=== PATIENT | male | born 1935 | race Caucasian/White ===

== ENCOUNTER 2021-06-16 18:04 | Emergency (ER) | payer OTHER ==
[2021-06-16] MEDS ORDERED: Ondansetron PF 4 MG/2 ML Vial ONE (18:34)
[2021-06-16] MEDS ORDERED: Sodium Chloride 0.9% 500 ML ONE (18:34)
[2021-06-16 18:49] LABS: Bilirubin Negative (Negative); Blood, Urine Trace (Negative); Clarity Clear (Clear); Glucose, Urine (Dipstick) >=1000 mg/dL (Negative); Ketone, Urine Negative (Negative); Leukocyte Negative (Negative); Nitrite Negative (Negative); Protein, Urine (Dipstick) Negative (Neg-Trace); Specific Gravity, Urine 1.015 (1.005-1.030); Urobilinogen 0.2 mg/dL (Less than 2); pH, Urine 5.5 (5.0-9.0)
[2021-06-16 18:52] LABS: #Basophils 0.1 thou/uL (0.0-0.2); #Eosinphils 0.5 thou/uL (0.0-0.7); #Lymphocytes 2.1 thou/uL (1.20-3.40); #Monocytes 0.7 thou/uL (0.11-0.59); #Neutrophils 3.8 thou/uL (1.40-6.50); %Basophils 1.7 % (0.0-1.0); %Eosinophils 6.3 % (0.0-10.0); %Lymphocytes 29.3 % (21.0-51.0); %Neutrophils 52.8 % (42.0-75.0); Hemoglobin 12.1 g/dL (14.0-18.0); Mean Corpuscular HGB CONC 32.4 g/dL (32.0-36.0); Mean Corpuscular Hemoglobin 32.3 pg (27.0-31.0); Mean Corpuscular Volume 99.7 fL (78.0-98.0); Mean Platelet Volume 6.6 fL (7.4-10.4); Platelet Count 154 thou/uL (130-400); RBC Distribution Width 11.7 % (11.5-14.5); Red Blood Cell (RBC) Count 3.75 mill/uL (4.70-6.10); White Blood Cell (WBC) Count 7.3 thou/uL (4.8-10.8)
[2021-06-16 18:55] LABS: Bacteria/HPF Rare-Few HPF (None Seen); RBC/HPF 0-3 HPF (0-3); Squamous Epithelial 0-3 HPF (0-3); WBC/HPF 0-3 HPF (0-3)
[2021-06-16 18:58] LABS: INR-International Normal Ratio 1.1
[2021-06-16 18:59] LABS: PTT 34.8 sec (22.9-36.1)
[2021-06-16 19:06] LABS: ALT (SGPT) 33 U/L (8-55); AST (SGOT) 27 U/L (5-34); Albumin 3.7 g/dL (3.4-4.8); Alkaline Phosphatase 62 U/L (40-110); Anion Gap 14 mmol/L (10-20); BUN (Urea Nitrogen) 19 mg/dL (8.4-25.7); Bilirubin, Total 0.4 mg/dL (0.2-1.2); Calc. Creatinine Clearance 0 mL/min (70-130); Calcium 8.4 mg/dL (7.8-10.44); Carbon Dioxide 22 mmol/L (23-31); Chloride 107 mmol/L (98-107); Globulin 2.8 g/dL (2.4-3.5); Glucose 99 mg/dL (83-110); Potassium 4.1 mmol/L (3.5-5.1); Protein, Total 6.5 g/dL (5.8-8.1); Sodium 139 mmol/L (136-145)
[2021-06-16] MEDS ORDERED: Lorazepam 2 MG/ML VIAL ONE (19:07)
== END 2021-06-16 21:23 | disposition home or self-care (01) ==
LOC: MADERS 18:04
DX: M51.36 Other intervertebral disc degeneration, lumbar region (principal); M50.30 Other cervical disc degeneration, unspecified cervical region; E11.9 Type 2 diabetes mellitus without complications; E78.5 Hyperlipidemia, unspecified; E03.9 Hypothyroidism, unspecified; K21.9 Gastro-esophageal reflux disease without esophagitis; Z87.891 Personal history of nicotine dependence; V43.62XA Car passenger injured in collision with other type car in traffic accident, initial encounter
CPT/HCPCS: 70450; 71250; 72125; 74177; 80053; 81003; 81015; 85025; 85610; 85730; 93005; 94760; 96374; 96375; J2060; J2405; J7030

== ENCOUNTER 2022-08-04 19:29 | Emergency (ER) | payer OTHER ==
[2022-08-04] MEDS ORDERED: Lidocaine 1% PF 5 ML VIAL ONE (19:46)
[2022-08-04] MEDS ORDERED: Lidocaine 1% (PF) 30 ML VIAL ONE (19:48)
[2022-08-04] MEDS ORDERED: Bacitracin 1 PK ONE (20:05)
== END 2022-08-04 20:15 | disposition home or self-care (01) ==
LOC: MADERS 19:29
DX: S01.81XA Laceration without foreign body of other part of head, initial encounter (principal); E11.9 Type 2 diabetes mellitus without complications; E78.5 Hyperlipidemia, unspecified; E03.9 Hypothyroidism, unspecified; K21.9 Gastro-esophageal reflux disease without esophagitis; Z87.891 Personal history of nicotine dependence; Z79.899 Other long term (current) drug therapy; Z79.82 Long term (current) use of aspirin; Z79.84 Long term (current) use of oral hypoglycemic drugs; W01.198A Fall on same level from slipping, tripping and stumbling with subsequent striking against other object, initial encounter
CPT/HCPCS: 12013; J2001

== ENCOUNTER 2022-09-17 14:16 | Emergency (ER) | payer OTHER ==
[2022-09-17 14:46] LABS: #Basophils 0.1 thou/uL (0.0-0.2); #Eosinphils 0.4 thou/uL (0.0-0.7); #Lymphocytes 1.5 thou/uL (1.20-3.40); #Monocytes 0.5 thou/uL (0.11-0.59); #Neutrophils 3.8 thou/uL (1.40-6.50); %Basophils 1.5 % (0.0-1.0); %Eosinophils 5.8 % (0.0-10.0); %Lymphocytes 23.7 % (21.0-51.0); %Monocytes 7.5 % (0.0-10.0); %Neutrophils 61.6 % (42.0-75.0); Hemoglobin 11.9 g/dL (14.0-18.0); Mean Platelet Volume 7.2 fL (7.4-10.4); Platelet Count 148 10x3/uL (130-400); RBC Distribution Width 11.7 % (11.5-14.5); Red Blood Cell (RBC) Count 3.73 mill/uL (4.70-6.10); White Blood Cell (WBC) Count 6.2 10x3/uL (4.8-10.8)
[2022-09-17 14:52] LABS: INR-International Normal Ratio 1.1; Prothrombin Time 14.8 sec (12.0-14.7)
[2022-09-17 14:53] LABS: PTT 33.8 sec (22.9-36.1)
[2022-09-17] MEDS ORDERED: Famotidine/PF 20 mg/2ml Vial ONE (15:00)
[2022-09-17 15:04] LABS: ALT (SGPT) 30 U/L (8-55); AST (SGOT) 25 U/L (5-34); Albumin 4.2 g/dL (3.4-4.8); Alkaline Phosphatase 76 U/L (40-110); Anion Gap 14 mmol/L (10-20); BUN (Urea Nitrogen) 22 mg/dL (8.4-25.7); Bilirubin, Total 0.4 mg/dL (0.2-1.2); Calc. Creatinine Clearance 0 mL/min (70-130); Carbon Dioxide 24 mmol/L (23-31); Chloride 106 mmol/L (98-107); Estimated GFR 52; Globulin 2.7 g/dL (2.4-3.5); Glucose 119 mg/dL (83-110); Lipase 37 U/L (8-78); Potassium 4.7 mmol/L (3.5-5.1); Protein, Total 6.9 g/dL (5.8-8.1); Sodium 139 mmol/L (136-145)
[2022-09-17 15:16] LABS: Magnesium 2.2 mg/dL (1.6-2.6)
== END 2022-09-17 17:00 | disposition short-term general hospital (02) ==
LOC: MADERS 14:16
DX: I20.0 Unstable angina (principal); E78.5 Hyperlipidemia, unspecified; E03.9 Hypothyroidism, unspecified; K21.9 Gastro-esophageal reflux disease without esophagitis; E11.319 Type 2 diabetes mellitus with unspecified diabetic retinopathy without macular edema; Z87.891 Personal history of nicotine dependence; Z79.899 Other long term (current) drug therapy; Z79.82 Long term (current) use of aspirin
CPT/HCPCS: 71045; 80053; 83690; 83735; 83880; 84443; 84484; 85025; 85610; 85730; 93005; 94760; 96374; S0028

== ENCOUNTER 2023-06-20 11:54 | Emergency (ER) | payer OTHER ==
[2023-06-20 12:51] LABS: #Basophils 0.1 thou/uL (0.0-0.2); #Eosinphils 0.1 thou/uL (0.0-0.7); #Lymphocytes 0.5 thou/uL (1.20-3.40); #Monocytes 0.3 thou/uL (0.11-0.59); #Neutrophils 4.9 thou/uL (1.40-6.50); %Basophils 1.6 % (0.0-1.0); %Eosinophils 2.5 % (0.0-10.0); %Lymphocytes 9.1 % (21.0-51.0); %Monocytes 4.5 % (0.0-10.0); %Neutrophils 82.3 % (42.0-75.0); Hematocrit 38.6 % (42.0-52.0); Hemoglobin 12.3 g/dL (14.0-18.0); Mean Corpuscular HGB CONC 31.8 g/dL (32.0-36.0); Mean Corpuscular Hemoglobin 32.3 pg (27.0-31.0); Mean Corpuscular Volume 101.5 fl (78.0-98.0); Mean Platelet Volume 8.8 fL (7.4-10.4); Platelet Count 138 10x3/uL (130-400); RBC Distribution Width 12.4 % (11.5-14.5); White Blood Cell (WBC) Count 5.9 10x3/uL (4.8-10.8)
[2023-06-20 13:05] LABS: Anion Gap 16 mmol/L (10-20); BUN (Urea Nitrogen) 23 mg/dL (8.4-25.7); CK (CPK) 133 U/L (30-200); Calc. Creatinine Clearance 0 mL/min (70-130); Calcium 8.9 mg/dL (7.8-10.44); Carbon Dioxide 23 mmol/L (23-31); Chloride 106 mmol/L (98-107); Estimated GFR 44; Glucose 247 mg/dL (83-110); Potassium 4.3 mmol/L (3.5-5.1); Sodium 141 mmol/L (136-145)
[2023-06-20 13:07] LABS: Troponin I 0.013 ng/mL (< 0.028)
[2023-06-20 14:26] LABS: Bilirubin Negative (Negative); Blood, Urine Trace (Negative); Clarity Hazy (Clear); Glucose, Urine (Dipstick) >=1000 mg/dL (Negative); Ketone, Urine Negative (Negative); Leukocyte Negative (Negative); Nitrite Negative (Negative); Protein, Urine (Dipstick) Negative (Neg-Trace); Specific Gravity, Urine 1.015 (1.005-1.030); Urobilinogen 0.2 mg/dL (Less than 2)
[2023-06-20 14:27] LABS: CAUTI Indications for Culture Dysuria,urgency,freq
[2023-06-20 14:34] LABS: Bacteria/HPF Rare-Few HPF (None Seen); RBC/HPF 0-3 HPF (0-3); Squamous Epithelial 0-3 HPF (0-3); WBC/HPF 0-3 HPF (0-3)
[2023-06-20 14:35] LABS: Urine Culture Reflex No No
== END 2023-06-20 17:25 | disposition home or self-care (01) ==
LOC: MADERS 11:54
DX: R41.82 Altered mental status, unspecified (principal); M62.81 Muscle weakness (generalized); E11.40 Type 2 diabetes mellitus with diabetic neuropathy, unspecified; Z87.891 Personal history of nicotine dependence; W19.XXXA Unspecified fall, initial encounter
CPT/HCPCS: 70450; 72125; 80048; 81001; 82550; 84484; 85025

== ENCOUNTER 2024-07-04 13:05 | Inpatient (IN) | payer MEDICARE, OTHER ==
[2024-07-04 13:21] VITALS: BMI 20.9
[2024-07-04] MEDS: FLU (Fluad Triv) TS24-25 (65UP)/MF59C/PF 45 MCG/0.5 ML Syringe IM ONE (15:40)
[2024-07-04] MEDS ORDERED: Loperamide HCl 2 MG CAP PO PRN ×2 (16:43)
[2024-07-04] MEDS ORDERED: Senokot S 8.6-50 MG TAB PO PRN (16:43)
[2024-07-04] MEDS ORDERED: Bisacodyl 10 MG SUPP PR PRN (16:43)
[2024-07-04] MEDS ORDERED: Bisacodyl 5 MG TAB PO PRN (16:43)
[2024-07-04] MEDS: Magnesium Oxide 400 MG TAB PO SCH (20:43)
[2024-07-04] MEDS: Tamsulosin HCl 0.4 MG CAP PO SCH (20:44)
[2024-07-04] MEDS: Mirtazapine 15 MG TAB PO SCH (20:44)
[2024-07-04] MEDS: Memantine 10 MG TAB PO SCH (20:44)
[2024-07-04] MEDS: Pramipexole Di-HCl 0.25 MG TAB PO SCH (20:44)
[2024-07-04] MEDS: (Cinnamon Bark [Cinnamon] 500 MG Capsule) PO SCH (20:47)
[2024-07-04] MEDS ORDERED: Dextrose 50% Abboject 50 ML SYRINGE SLOW IVP PRN ×3 (22:09→22:58)
[2024-07-04] MEDS ORDERED: Glucagon 1 MG/ML KIT IM PRN ×3 (22:09→22:58)
[2024-07-04] MEDS ORDERED: Ondansetron ODT 4 MG TAB PO PRN (23:00)
[2024-07-05] MEDS: Levothyroxine Sodium 75 MCG TAB PO SCH (05:26)
[2024-07-05] MEDS: glipiZIDE 5 MG TAB PO SCH (08:35)
[2024-07-05] MEDS: Multivit, Therapeutic 1 TAB PO SCH (08:35)
[2024-07-05] MEDS: Atorvastatin Calcium 40 MG TAB PO SCH (08:35)
[2024-07-05] MEDS: buPROPion HCl 100 MG TAB PO SCH (08:35)
[2024-07-05] MEDS: Aspirin 81 mg Enteric Coated Tablet PO SCH (08:35)
[2024-07-05] MEDS: Donepezil HCl 10 MG TAB PO SCH (08:35)
[2024-07-05] MEDS: Pantoprazole DR 40 MG TAB PO SCH (08:35)
[2024-07-05] MEDS: Empagliflozin 10 MG TAB PO SCH (08:35)
[2024-07-05] MEDS: Cyanocobalamin (Vitamin B-12) 1,000 MCG TAB PO SCH (08:35)
[2024-07-05] MEDS: Insulin Regular, Human 100 UNIT/ML 10 ML VIAL SC PRN (08:36)
[2024-07-05 14:44] VITALS: BMI 20.9
[2024-07-06] MEDS: Acetaminophen 325 MG TAB PO PRN (05:21)
[2024-07-06] MEDS: Dorzolamide HCl 2% Ophth (10 mL) Bottle EA EYE SCH (19:28)
[2024-07-06] MEDS: Latanoprost 0.005% Ophth Soln 2.5 ml Bottle EA EYE SCH (19:32)
[2024-07-07] MEDS: Insulin Regular, Human 100 UNIT/ML 10 ML VIAL SC PRN (21:02)
[2024-07-08] MEDS ORDERED: Diclofenac 1% 100 GM Topical GEL TP PRN (16:17)
[2024-07-10] MEDS: Lidocaine 4% Patch TD SCH (15:10)
[2024-07-10] MEDS: Transdermal Patch Removal TOP SCH (21:13)
[2024-07-11] MEDS: Lidocaine 4% Patch TD SCH (08:41)
[2024-07-13 07:11] VITALS: BP 143/65; TEMP 97.9
== END 2024-07-13 14:15 | disposition home or self-care (01) | DRG 947 ==
LOC: MADMS 13:05
PROVIDERS: ADMIT Family Medicine; ATTEND Family Medicine
DX: R53.81 Other malaise (principal); G93.41 Metabolic encephalopathy; J96.00 Acute respiratory failure, unspecified whether with hypoxia or hypercapnia; N17.9 Acute kidney failure, unspecified; E78.5 Hyperlipidemia, unspecified; E03.9 Hypothyroidism, unspecified; I12.9 Hypertensive chronic kidney disease with stage 1 through stage 4 chronic kidney disease, or unspecified chronic kidney disease; Z91.041 Radiographic dye allergy status; Z88.0 Allergy status to penicillin; Z98.890 Other specified postprocedural states; Z87.891 Personal history of nicotine dependence; Z79.899 Other long term (current) drug therapy; E11.65 Type 2 diabetes mellitus with hyperglycemia; E11.22 Type 2 diabetes mellitus with diabetic chronic kidney disease; N18.30 Chronic kidney disease, stage 3 unspecified; D69.6 Thrombocytopenia, unspecified; I25.10 Atherosclerotic heart disease of native coronary artery without angina pectoris; F41.9 Anxiety disorder, unspecified; G89.4 Chronic pain syndrome; Z79.82 Long term (current) use of aspirin
CPT/HCPCS: 36416; J1815